=== PATIENT | female | born 1940 | race Caucasian/White ===

== ENCOUNTER 2017-03-04 06:01 | Inpatient (IN) | payer MEDICARE ==
[2017-03-02 14:41] LABS: BASOPHILS 0.5 %; BASOPHILS ABSOLUTE 0.03 10/3/uL (0.0-0.16); EOSINOPHILS 2.7 %; EOSINOPHILS ABSOLUTE 0.18 10/3/uL (0.0-0.53); HEMATOCRIT 40.8 % (36.0-48.0); HEMOGLOBIN 13.4 g/dL (12.0-16.0); IMMATURE GRANULOCYTES 0.2 %; IMMATURE GRANULOCYTES ABSOLUTE 0.01 10/3/uL (0.0-0.11); LYMPHOCYTES ABSOLUTE 1.85 10/3/uL (0.67-4.30); MEAN CORPUS HGB CONC 32.8 g/dL (32.0-36.0); MEAN CORPUSCULAR HEMOGLOB 30.9 pg (26.0-34.0); MEAN PLATELET VOLUME 10.1 fL (9.2-13.0); MONOCYTES 6.2 %; MONOCYTES ABSOLUTE 0.41 10/3/uL (0.21-1.20); NEUTROPHILS 62.4 %; NEUTROPHILS ABSOLUTE 4.13 10/3/uL (2.02-8.40); PLATELET COUNT 287 10/3/uL (150-400); RBC DISTRIBUTION WIDTH 14.6 % (12.0-16.0); RED CELL COUNT 4.34 10/6/uL (4.0-5.6)
[2017-03-02 14:42] LABS: MANUAL DIFF NO %; WHITE BLOOD CELLS 6.6 10/3/uL (4.5-10.5)
[2017-03-02 15:04] LABS: A/G RATIO 1.1 (0.7-1.9); ALBUMIN 3.5 G/DL (3.5-5.0); ALKALINE PHOSPHATASE 66 U/L (45-117); BUN (BLOOD UREA NITROGEN) 29 MG/DL (6-23); CALCIUM, SERUM 9.6 MG/DL (8.5-10.4); CHLORIDE, SERUM 109 MMOL/L (96-112); CO2 (CARBON DIOXIDE) 28 MMOL/L (24-34); CREATININE 1.34 MG/DL (0.55-1.02); GFR AFRICAN AMERICAN 45 ML/MIN (>=60); GFR NON AFRICAN AMERICAN 39 ML/MIN (>=60); GLOBULIN 3.2 G/DL (2.5-4.1); GLUCOSE, SERUM 82 MG/DL (60-99); POTASSIUM, SERUM 4.9 MMOL/L (3.5-5.3); SGOT(AST) 13 U/L (5-40); SGPT(ALT) 20 U/L (5-65); SODIUM, SERUM 141 MMOL/L (135-148); TOTAL BILIRUBIN 0.5 MG/DL (0-1.2); TOTAL PROTEIN 6.7 G/DL (6.0-8.5)
--- NOTE | ~2017-03-04 | OP ---
Record Of Operation [facility] [address] [place]. [address] NAME: HILTON DUGGAN : 44 STATUS : ADM IN [facility]#: [id number] AGE: 76 ADM/REG DATE : 03/04/17 MR#: [id number] REPORT SERV DATE: 03/04/17 DICTATED BY: JESUS SPENCER III DATE: 03/04/17 REPORT STATUS : Draft TRANSCRIBED BY: MODL DATE: 03/04/17 DATE OF PROCEDURE: 03/04/2017 PREOPERATIVE DIAGNOSIS: Symptomatic recurrent incisional hernia. POSTOPERATIVE DIAGNOSIS: Symptomatic recurrent incarcerated incisional hernia. PROCEDURE: Laparoscopic repair of recurrent incarcerated hernia with Prolene mesh. SURGEON: Jesus Spencer M.D. ANESTHESIA: General with intubation. COMPLICATIONS: None. ESTIMATED BLOOD LOSS: Less than 5 mL. SPECIMENS: None. DRAINS: None. LAP AND SPONGE COUNT: Correct x3. BRIEF HISTORY: This 76-year-old female presented with a symptomatic recurrent incisional hernia. It was felt that laparoscopic repair of the hernia, possible laparotomy, was indicated. This procedure, the risks, benefits, and alternatives, including but not limited to the risk for bleeding, infection, enterotomy, injury to any abdominal structure, postop small bowel obstruction, ileus, seroma formation, hematoma formation, recurrence of the hernia, infection of the mesh or enterocutaneous fistula requiring removal of the mesh, and unforeseen complications including deep venous thrombosis, pulmonary embolus, myocardial infarction, stroke, pneumonia, and were fully explained to the patient prior to the surgery. The expected length of recovery with open laparoscopic procedures was explained. The patient had questions, which were answered. She fully understood the risks and agreed to the surgery as planned. DESCRIPTION OF PROCEDURE: After being properly identified, and after discussing the risks carefully with the patient and family again in the preoperative area, and after identifying the hernia with her help in the preoperative area, and marking with a skin marker, the patient was taken to the operating room, and placed in the supine position on the operating room table. General anesthesia was administered, and she was intubated without difficulty. The abdomen was prepped and draped sterilely in the usual fashion. After an appropriate "time-out" per JCAHO standards, a small transverse incision was made just below the xiphoid process. The incision was continued through the subcutaneous tissue. Hemostasis was controlled with the cautery. The incision was continued through the fascia. The peritoneal cavity was entered under direct vision. A #10 balloon-tipped Origin trocar was placed under direct vision into the abdomen. The balloon was inflated. The abdominal cavity was then Record Of Operation [facility] [address] [place]. [address] NAME: HILTON DUGGAN : 44 STATUS : ADM IN PAT#: [id number] AGE: 76 ADM/REG DATE : 03/04/17 MR#: [id number] REPORT SERV DATE: 03/04/17 DICTATED BY: JESUS SPENCER III DATE: 03/04/17 REPORT STATUS : Draft TRANSCRIBED BY: MODL DATE: 03/04/17 insufflated to about 13 mmHg with carbon dioxide. Correct position of air in the peritoneal cavity was confirmed by palpation. The laparoscope was placed through this. A 5 mm trocar was then placed in the left upper quadrant under direct vision of the laparoscope. Another 5 mm trocar was placed in the left lower quadrant in the left lateral abdominal wall, also under direct vision. The abdomen was inspected. There was noted be incarcerated hernia in the lower abdomen just to the right of the midline. There was a loop of bowel incarcerated within this. The appropriate instruments were placed through the trocars. Using careful dissection, this intestine was carefully reduced back in the abdominal cavity. There was a fairly large fascial defect. There was some preperitoneal fat also incarcerated within this, and this was also reduced. With the hernia defect fully defined, we selected a light weight Ventralight Prolene mesh. An oval shaped mesh was used which was the appropriate size for the defect. The #1 Prolene sutures were placed in each corner of the mesh. The mesh was then rolled and passed through the 10 mm trocar into the abdominal cavity. The previously placed sutures were then placed around the quadrants of the defects in a transfascial fashion using a suture passer. These sutures were then tied. This resulted in good anchoring of the mesh over the defect. The mesh was positioned so as to overlap the edges of the defect by 2 to 3 cm on all sides. An Endotacker was then used to secure the mesh around the edges of the defect. Upon completion of this, the mesh nicely overlay the defect on all sides and overlapped by at least 3 cm. Hemostasis was assured. The trocars were removed under direct vision with the laparoscope. Finally, the subxiphoid trocar was removed under direct vision with the laparoscopic to assure hemostasis in this incision. The air was removed from the peritoneal cavity through this incision. The fascia of this incision was closed with a 0 Vicryl suture. The skin incisions were closed with the running subcuticular 4-0 Monocryl stitches. They were injected with 0.5% Marcaine. Dressings were applied. Anesthesia was reversed. The patient was taken to the recovery room in stable condition. She tolerated the procedure well. Her family was informed the results of the surgery. The patient will remain in the hospital for postoperative care. RHJ/MODL Jesus Spencer III, M.D. / [id number] CC: Jesus Spencer III, M.D.
--- NOTE | ~2017-03-04 | PREOPHP ---
PreOp History and Physical [address] [place]. [address] NAME: HILTON DUGGAN : 44 STATUS : ADM IN [facility]#: [id number] AGE: 76 ADM/REG DATE : 03/04/17 MR#: [id number] REPORT SERV DATE: 03/05/17 DICTATED BY: SUSIE SPENCER III DATE: 02/18/17 REPORT STATUS : Draft TRANSCRIBED BY: SAMMIE DATE: 02/18/17 HISTORY OF PRESENT ILLNESS: This is a 76-year-old female, who comes to the operating room for open repair of recurrent symptomatic incisional hernia. The patient has a large incisional hernia in the lower abdomen, to the right of the midline. This hernia has been associated with incarcerated symptoms and pain. The patient comes now for open repair of this hernia. PAST MEDICAL HISTORY: 1. Fibromyalgia. 2. Atrial fibrillation. 3. History of left kidney cancer. PAST SURGICAL HISTORY: Includes incisional hernia repair x2, left nephrectomy, right knee replacement, and hysterectomy. MEDICATIONS: Coumadin and propafenone. FAMILY HISTORY: Positive for colon cancer. SOCIAL HISTORY: No history of tobacco or alcohol use. ALLERGIES: ADVIL, CELEBREX, CIPRO, DARVON, ERYTHROMYCIN, VASOTEC, KEFLEX, NONSTEROIDAL ANTI- INFLAMMATORY MEDICATIONS AND SULFA. REVIEW OF SYSTEMS: The patient complains of weight gain, back pain, and joint pain. Her 14-point review of systems is otherwise unremarkable. PHYSICAL EXAMINATION: GENERAL: Reveals an obese female, in no acute distress. She is alert and oriented x3. VITAL SIGNS: Blood pressure 147/76, pulse 71, temp 98. HEENT: Unremarkable. Cranial nerves 2 through 12 are normal. LUNGS: Clear. CARDIAC: Normal. ABDOMEN: Soft, nontender. She has a palpable hernia in the right lower quadrant, several centimeters to the right of the midline. This is partly reducible. EXTREMITIES: Normal. LABORATORY DATA: Recent CT scan of the abdomen and pelvis shows a hernia in the right lower abdomen corresponding to the palpable abnormality in the right lower quadrant. It is noted that this contained some loops of small bowel without evidence for incarceration or obstruction. ASSESSMENT: A 76-year-old female with: 1. Recurrent symptomatic incisional hernia. 2. Obesity. 3. Fibromyalgia. PreOp History and Physical [facility] [address] [address] NAME: HILTON DUGGAN : 44 STATUS : ADM IN [facility]#: [id number] AGE: 76 ADM/REG DATE : 03/04/17 MR#: [id number] REPORT SERV DATE: 03/05/17 DICTATED BY: SUSIE SPENCER III DATE: 02/18/17 REPORT STATUS : Draft TRANSCRIBED BY: MODL DATE: 02/18/17 4. Atrial fibrillation. 5. History of left kidney cancer. PLAN: The patient comes to the operating room now for open repair of this recurrent symptomatic incisional hernia. This procedure, the risks, benefits and alternatives, including not limited to the risk for bleeding, infection, enterotomy, injury to abdominal structure, postop small bowel obstruction, ileus, seroma formation, hematoma formation, recurrence of the hernia, need for use of mesh, risk of infection of mesh or enterocutaneous fistula requiring removal of the mesh and unforeseen complications including deep venous thrombosis, pulmonary embolus, myocardial infarction, stroke pneumonia and , have been fully and completely explained to the patient at length prior to surgery. The fact that this is a major operation with risk for major morbidity and mortality has been explained. The expected length of recovery has been explained. The fact that she will be at increased risk for thromboembolic complications while her Coumadin is held perioperatively has been explained as well as the increased risk of bleeding because of the use of this medication. The patient's questions have been answered. She clearly understands the risks and agrees to the surgery as planned. HOWARD/SAMMIE Susie Spencer III, M.D. / [phone]
[~2017-03-04 06:01] MED LIST: ALEVE220 MG PO; CITRUCEL500 MG; CITRUCELSF PO; COUMADIN7.5 MG PO; LORT7 PO; PRILO PO; RYTHMOL150 MG PO; T PO; ULTRAM50 PO; VICODIN ES1 TAB PO; VITAMIN D31000 UNIT PO
[2017-03-04 06:47] LABS: INTERNATIONAL NORMAL RATI 1.1 UNITS (-); PROTIME (NOT ORD) 14.2 SEC (12.0-14.5)
[2017-03-05 07:18] LABS: BASOPHILS 0 %; EOSINOPHILS 0 %; HEMATOCRIT 38.4 % (36.0-48.0); HEMOGLOBIN 13.1 g/dL (12.0-16.0); IMMATURE GRANULOCYTES 0.3 %; IMMATURE GRANULOCYTES ABSOLUTE 0.03 10/3/uL (0.0-0.11); LYMPHOCYTES 8.3 %; LYMPHOCYTES ABSOLUTE 0.81 10/3/uL (0.67-4.30); MEAN CORPUS HGB CONC 34.1 g/dL (32.0-36.0); MEAN CORPUSCULAR HEMOGLOB 31.1 pg (26.0-34.0); MEAN CORPUSCULAR VOLUME 91.2 fL (80-100); MEAN PLATELET VOLUME 10.2 fL (9.2-13.0); MONOCYTES ABSOLUTE 0.58 10/3/uL (0.21-1.20); NEUTROPHILS 85.4 %; NEUTROPHILS ABSOLUTE 8.31 10/3/uL (2.02-8.40); PLATELET COUNT 281 10/3/uL (150-400); RBC DISTRIBUTION WIDTH 14.4 % (12.0-16.0); RED CELL COUNT 4.21 10/6/uL (4.0-5.6)
[2017-03-05 07:19] LABS: WHITE BLOOD CELLS 9.7 10/3/uL (4.5-10.5)
[2017-03-05 07:20] LABS: MANUAL DIFF NO %
[2017-03-05 07:24] LABS: INTERNATIONAL NORMAL RATI 1.1 UNITS (-); PROTIME (NOT ORD) 14.4 SEC (12.0-14.5)
[2017-03-05 07:31] LABS: CALCIUM, SERUM 9.4 MG/DL (8.5-10.4); CHLORIDE, SERUM 108 MMOL/L (96-112); CO2 (CARBON DIOXIDE) 26 MMOL/L (24-34); CREATININE 1.36 MG/DL (0.55-1.02); GFR AFRICAN AMERICAN 44 ML/MIN (>=60); GFR NON AFRICAN AMERICAN 38 ML/MIN (>=60); POTASSIUM, SERUM 5.1 MMOL/L (3.5-5.3); SODIUM, SERUM 140 MMOL/L (135-148)
[2017-03-05 07:32] LABS: BUN (BLOOD UREA NITROGEN) 18 MG/DL (6-23); GLUCOSE, SERUM 153 MG/DL (60-99)
[2017-03-06 03:48] LABS: BASOPHILS 0.2 %; BASOPHILS ABSOLUTE 0.02 10/3/uL (0.0-0.16); EOSINOPHILS 0.6 %; EOSINOPHILS ABSOLUTE 0.06 10/3/uL (0.0-0.53); HEMATOCRIT 38.3 % (36.0-48.0); HEMOGLOBIN 12.5 g/dL (12.0-16.0); IMMATURE GRANULOCYTES 0.2 %; IMMATURE GRANULOCYTES ABSOLUTE 0.02 10/3/uL (0.0-0.11); LYMPHOCYTES 24.4 %; LYMPHOCYTES ABSOLUTE 2.45 10/3/uL (0.67-4.30); MANUAL DIFF NO %; MEAN CORPUS HGB CONC 32.6 g/dL (32.0-36.0); MONOCYTES 7.2 %; MONOCYTES ABSOLUTE 0.72 10/3/uL (0.21-1.20); NEUTROPHILS 67.4 %; NEUTROPHILS ABSOLUTE 6.77 10/3/uL (2.02-8.40); PLATELET COUNT 245 10/3/uL (150-400); RBC DISTRIBUTION WIDTH 14.9 % (12.0-16.0); RED CELL COUNT 4.03 10/6/uL (4.0-5.6)
[2017-03-06 03:54] LABS: INTERNATIONAL NORMAL RATI 1.1 UNITS (-); PROTIME (NOT ORD) 14.3 SEC (12.0-14.5)
[2017-03-06 04:02] LABS: BUN (BLOOD UREA NITROGEN) 20 MG/DL (6-23); CALCIUM, SERUM 8.9 MG/DL (8.5-10.4); CHLORIDE, SERUM 113 MMOL/L (96-112); CO2 (CARBON DIOXIDE) 24 MMOL/L (24-34); CREATININE 1.33 MG/DL (0.55-1.02); GFR AFRICAN AMERICAN 46 ML/MIN (>=60); GFR NON AFRICAN AMERICAN 39 ML/MIN (>=60); POTASSIUM, SERUM 4.8 MMOL/L (3.5-5.3); SODIUM, SERUM 145 MMOL/L (135-148)
[2017-03-06 04:03] LABS: GLUCOSE, SERUM 98 MG/DL (60-99)
[2017-03-06] MEDS ORDERED: NORCO1 TA2 PO (07:46)
[2017-03-06] MEDS ORDERED: PR25 PO (07:59)
== END 2017-03-06 13:59 | disposition home or self-care (01) | DRG 354 ==
LOC: SDC 06:01 → SDC/OF 10:03 → 5SO 10:36
PROVIDERS: Surgery
PROC: 0WUF4JZ Supplement Abdominal Wall with Synthetic Substitute, Percutaneous Endoscopic Approach (ICD-10-PCS; principal; 2017-03-04 07:30)
DX: K43.0 Incisional hernia with obstruction, without gangrene (principal); K56.7 Ileus, unspecified; I48.2 Chronic atrial fibrillation; M79.7 Fibromyalgia; Z85.528 Personal history of other malignant neoplasm of kidney; Z90.49 Acquired absence of other specified parts of digestive tract; Z90.710 Acquired absence of both cervix and uterus; Z98.890 Other specified postprocedural states; Z90.5 Acquired absence of kidney; Z96.651 Presence of right artificial knee joint; Z79.01 Long term (current) use of anticoagulants; Z80.0 Family history of malignant neoplasm of digestive organs; Z88.8 Allergy status to other drugs, medicaments and biological substances; Z88.1 Allergy status to other antibiotic agents; Z88.2 Allergy status to sulfonamides; E66.9 Obesity, unspecified; Z68.36 Body mass index [BMI] 36.0-36.9, adult
CPT/HCPCS: 71020; 80048; 80053; 85025; 85610; 87641; 93005; A9270-GY; C1713; C1781; J0330; J0690; J1170; J2250; J2405; J2550; J2710; J2795; J3010